=== PATIENT | male | born 1965 | race American Indian/Alaskan Native ===

== ENCOUNTER 2020-02-23 13:11 | Emergency (ER) | payer SELFPAY ==
--- NOTE | 2020-02-23 14:02 | Emergency Department Report ---
Blank Doc - Documentation Documentation: 54-year-old male that presents with abdominal pain with n/v and weakness. This initial assessment/diagnostic orders/clinical plan/treatment(s) is/are subject to change based on patient's health status, clinical progression and re- assessment by fellow clinical providers in the ED. Further treatment and workup at subsequent clinical providers discretion. Patient/guardians urged not to elope from the ED as their condition may be serious if not clinically assessed and managed. Initial orders include: 1- Patient sent to [facility] for further evaluation and treatment 2- labs 3- UA
[2020-02-23 14:53] LABS: Basophils % (Auto) 0.6 % (0.0-1.8); Eosinophils % (Auto) 0.2 % (0.0-4.3); Hematocrit 43.5 % (35.5-45.6); Hemoglobin 14.3 gm/dl (11.8-15.2); Lymphocytes # (Auto) 1.4 K/mm3 (1.2-5.4); Lymphocytes % (Auto) 16.8 % (13.4-35.0); Mean Corpuscular HGB Conc 33 % (32-34); Mean Corpuscular Volume 85 fl (84-94); Monocytes # (Auto) 0.5 K/mm3 (0.0-0.8); Monocytes % (Auto) 6.3 % (0.0-7.3); Platelet Count 494 K/mm3 (140-440); Red Blood Count 5.15 M/mm3 (3.65-5.03)
[2020-02-23 15:18] LABS: Alanine Aminotransferase 7 units/L (7-56); Albumin 4.5 g/dL (3.9-5); BUN/Creatinine Ratio 16; Blood Urea Nitrogen 18 mg/dL (9-20); Calcium 10.4 mg/dL (8.4-10.2); Hemolysis Index 78
[2020-02-23] MEDS ORDERED: ONDANSETRON 4 MG/2 ML INJ IV ONE (17:17)
[2020-02-23] MEDS ORDERED: MORPHINE 2 MG/1 ML INJ IV ONE (17:17)
[2020-02-23] MEDS ORDERED: SODIUM CHLORIDE 0.9% 1000 ML 1,000 ML IV ONE (17:17)
--- NOTE | 2020-02-23 17:30 | Emergency Department Report ---
ED Abdominal Pain HPI - General Chief Complaint: Abdominal Pain Stated Complaint: ABD PAINS Time Seen by Provider: 02/23/20 13:59 Source: patient Mode of arrival: Ambulatory Limitations: No Limitations - History of Present Illness Initial Comments: 54-year-old male, no known past medical history, presents to ED with abdominal pain x3 days. Patient states pain is periumbilical. He reports associated nausea and vomiting, fever. He denies diarrhea. Patient reports he does drink alcohol, however denies drinking in excess of his usual amount prior to the onset of symptoms. Patient states he has experienced similar pain, off and on, over the past 3 years, however he has never gotten it checked out. MD Complaint: abdominal pain -: days(s) (3) Location: periumbilical Radiation: suprapubic Migration to: no migration Severity: severe Quality: aching Consistency: constant Improves With: nothing Worsens With: nothing Associated Symptoms: nausea, vomiting, fever. denies: diarrhea - Related Data Previous Rx's Medication Instructions Recorded Last Taken Type Dicyclomine [Bentyl] 20 mg PO QID PRN #20 tablet 02/23/20 Unknown Rx Ondansetron [Zofran Odt] 4 mg PO Q8HR PRN #20 tab.rapdis 02/23/20 Unknown Rx Allergies Allergy/AdvReac Type Severity Reaction Status Date / Time No Known Allergies Allergy Unverified 02/23/20 13:41 ED Review of Systems ROS: Stated complaint: ABD PAINS Other details as noted in HPI Comment: All other systems reviewed and negative Constitutional: fever Gastrointestinal: abdominal pain, nausea, vomiting. denies: diarrhea ED Past Medical Hx - Past Medical History Previous Medical History?: No - Surgical History Past Surgical History?: No - Social History Smoking Status: Current Every Day Smoker Substance Use Type: Alcohol, Marijuana - Medications Home Medications: Home Medications Medication Instructions Recorded Confirmed Last Taken Type Dicyclomine [Bentyl] 20 mg PO QID PRN #20 tablet 02/23/20 Unknown Rx Ondansetron [Zofran Odt] 4 mg PO Q8HR PRN #20 tab.rapdis 02/23/20 Unknown Rx ED Physical Exam - General Limitations: No Limitations General appearance: alert, in no apparent distress - Head Head exam: Present: atraumatic, normocephalic - Eye Eye exam: Present: normal appearance, EOMI - ENT ENT exam: Present: mucous membranes moist - Neck Neck exam: Present: normal inspection - Respiratory Respiratory exam: Present: normal lung sounds bilaterally. Absent: respiratory distress - Cardiovascular Cardiovascular Exam: Present: regular rate, normal rhythm - GI/Abdominal GI/Abdominal exam: Present: soft, tenderness (Periumbilical). Absent: distended - Extremities Exam Extremities exam: Present: normal inspection - Neurological Exam Neurological exam: Present: alert, oriented X3 - Psychiatric Psychiatric exam: Present: normal affect, normal mood - Skin Skin exam: Present: warm, dry, intact, normal color ED Course Vital Signs 02/23/20 02/23/20 13:41 18:03 Temperature 98.4 F Pulse Rate 95 H 83 Respiratory 18 16 Rate Blood Pressure 117/93 Blood Pressure 119/69 [Right] O2 Sat by Pulse 100 100 Oximetry ED Medical Decision Making - Lab Data Result diagrams: 02/23/20 14:29 02/23/20 14:29 - Radiology Data Radiology results: report reviewed, image reviewed - Medical Decision Making 54-year-old male presents to ED with exacerbation of recurrent, similar abdom inal pain that has been happening over the last 3 years. Patient reports associated nausea and vomiting. Vital signs are normal. Labs are unremarkable except for slight hyperkalemia of 5.2. I spoke with computer lab assistant who states that there is some slight hemolysis associated with this. This is likely reason of his hyperkalemia, as patient has normal renal function. CT scan negative for any acute findings. Patient was given IV fluids, morphine, Zofran. He is feeling much better at this time. No emesis here in ED. Will discharge at this time. Outpatient follow-up advised, return precautions given. - Differential Diagnosis Pancreatitis, bowel obstruction, gastroenteritis Critical care attestation.: If time is entered above; I have spent that time in minutes in the direct care of this critically ill patient, excluding procedure time. ED Disposition Clinical Impression: Abdominal pain Disposition: - TO HOME OR SELFCARE Is pt being admited?: No Condition: Stable Instructions: Abdominal Pain, Adult Prescriptions: Dicyclomine [Bentyl] 20 mg PO QID PRN #20 tablet PRN Reason: abdominal pain Ondansetron [Zofran Odt] 4 mg PO Q8HR PRN #20 tab.rapdis PRN Reason: Vomiting Referrals: PRIMARY CARE, [Primary Care Provider] - 3-5 Days [facility] [Provider Group] - 3-5 Days [facility] [Provider Group] - 3-5 Days Time of Disposition: 19:27
[2020-02-23 18:03] VITALS: BP 119/69
--- NOTE | 2020-02-23 18:28 | Cat Scan Report ---
CT ABDOMEN AND PELVIS WITH CONTRAST INDICATION / CLINICAL INFORMATION: abd pain. TECHNIQUE: Axial CT images were obtained through the abdomen and pelvis after administration of 1 or cc of IV contrast. All CT scans at this location are performed using CT dose reduction for ALARA by means of automated exposure control. COMPARISON: None FINDINGS: LOWER CHEST: Unremarkable LIVER: Unremarkable GALLBLADDER/BILIARY TREE: Unremarkable PANCREAS: Unremarkable SPLEEN: Unremarkable ADRENALS: Unremarkable KIDNEYS / URETER: Unremarkable URINARY BLADDER: Wall thickening of the bladder, which may be related to partial decompression. REPRODUCTIVE ORGANS: Unremarkable STOMACH / SMALL BOWEL: Stomach and small bowel are normal in caliber. No evidence of bowel inflammati on. COLON: Colon is unremarkable. The appendix is not discretely seen, though there are no secondary sign s of appendicitis. LYMPH NODES: No significant adenopathy. VASCULATURE: No significant abnormality. OTHER: No free air, free fluid, or focal fluid collection is identified. SKELETAL SYSTEM: No acute osseous findings. IMPRESSION: 1. Wall thickening of the bladder, which may be related decompression. Correlate for cystitis. 2. Otherwise, no acute process of the abdomen or pelvis. Signer Name: Lb Lee MD Signed: 02/23/2020 6:24 PM Workstation Name: [id number]
== END 2020-02-23 19:38 | disposition home or self-care (01) ==
LOC: ED 13:11
DX: R10.9 Unspecified abdominal pain (principal); F17.200 Nicotine dependence, unspecified, uncomplicated; F12.90 Cannabis use, unspecified, uncomplicated; Z79.899 Other long term (current) drug therapy
CPT/HCPCS: 36415; 74177; 80053; 82962; 83690; 85025; 96361; 96374; 96375; 99284; J2270; J2405; J7030; Q9967